=== PATIENT | female | born 1980 | race Caucasian/White ===

== ENCOUNTER 2019-01-26 05:47 | Inpatient (IN) | payer BC ==
[~2019-01-26 05:47] MED LIST: Buffered Lidocaine 1% SYRIN* 1 ML/SYRINGE INTRADERM ONE
[2019-01-26] MEDS ORDERED: Sodium Citrate/Citric Acid* 15 ML UDC PO ONE (06:00)
[2019-01-26] MEDS ORDERED: Lactated Ringers 1000 ML Bag* 1,000 ML IV SCH ×2 (06:00→11:00)
[2019-01-26] MEDS ORDERED: Clindamycin 900 MG/D5W BAG(*) 900 MG/50 ML BAG IVPB ONE (06:30)
[2019-01-26] MEDS ORDERED: NS 0.9% IVPB ONE (07:00)
[2019-01-26] MEDS ORDERED: GENTAMICIN ADULT IVPB ONE (07:00)
[2019-01-26] MEDS ORDERED: Morphine PF AMP (0.5MG/ML)* 5 MG/10 ML AMP ONE (07:33)
[2019-01-26] MEDS ORDERED: Naloxone* 0.4 MG/ML 1 ML VIAL IV PRN ×2 (08:42)
[2019-01-26] MEDS ORDERED: Acetaminophen TAB* 325 MG PO PRN ×2 (08:42)
[2019-01-26] MEDS ORDERED: fentaNYL* 50 MCG/ML 2 ML VIAL (100 MCG VIAL) IV PRN (08:42)
[2019-01-26] MEDS ORDERED: DiMENhydriNATE IV* 50 MG/ML VIAL IV PUSH PRN ×2 (08:42)
[2019-01-26] MEDS ORDERED: HYDROcodone/ACETAMIN 5-325 MG* 1 TAB PO PRN (08:42)
[2019-01-26] MEDS ORDERED: oxyCODONE/Acetamin 5/325 MG* TAB PO PRN (08:42)
[2019-01-26] MEDS ORDERED: Nalbuphine* 10 MG/ML 1 ML VIAL IV PRN (08:42)
[2019-01-26] MEDS ORDERED: HYDROmorphone INJ1* 1 MG/ML SYRINGE IV PRN (08:42)
[2019-01-26] MEDS ORDERED: Ketorolac INJ* 30 MG/ML 1 ML VIAL IV PRN (08:42)
[2019-01-26] MEDS ORDERED: Ondansetron INJ* 2 MG/ML VIAL IV PRN ×2 (08:42)
[2019-01-26] MEDS ORDERED: diPHENhydraMINE IV* 50 MG/ML 1 ml VIAL (BENADRYL) IV PRN ×2 (08:42)
[2019-01-26] MEDS ORDERED: Carboprost Tromethamine* 250 MCG INJ ONE (09:26)
[2019-01-26] MEDS ORDERED: Midazolam* 1 MG/ML 2 ML VIAL (2 MG) ONE (09:40)
[2019-01-26] MEDS ORDERED: OXYTOCIN* 10 UNITS/ML 1 ML VIAL ONE (09:45)
[2019-01-26] MEDS ORDERED: Phenylephrine IV* 40 MCG/ML 10 ML SYRINGE ONE (09:57)
[2019-01-26] MEDS ORDERED: EPHEDrine (Pressors)* 50 MG/ML VIAL ONE (09:57)
[2019-01-26] MEDS ORDERED: Zolpidem TAB* 5 MG PO PRN (10:22)
[2019-01-26] MEDS ORDERED: Dibucaine 1% 28.35 GM TUBE PR PRN (10:22)
[2019-01-26] MEDS ORDERED: Glycerin ADULT SUPP PR PRN (10:22)
[2019-01-26] MEDS ORDERED: Witch Hazel PAD* JAR TOPICAL PRN (10:22)
[2019-01-26] MEDS: Ketorolac INJ* 30 MG/ML 1 ML VIAL IV PRN ×2 (10:48→16:44)
[2019-01-26] MEDS: Oxytocin in LR* 20 UNITS/1,000 ML BAG IVPB SCH ×2 (11:01→17:53)
--- NOTE | 2019-01-26 11:41 | OP ---
OPERATIVE REPORT: DATE OF OPERATION: 01/26/19 DATE OF : 82 SURGEON: Steven Turner MD. TOPOLOGY PROFESSOR: Dr. Duke. ANESTHESIA: Spinal with Duramorph. PRE-OP DIAGNOSES: Previous section, desires permanent sterilization and anemia. POST-OP DIAGNOSES: Previous section, desires permanent sterilization and anemia. OPERATIVE PROCEDURE: Low transverse section, bilateral tubal ligation. ESTIMATED BLOOD LOSS: 800 cc. SPECIMEN: Includes bilateral fallopian tubes. FINDINGS: At the time of she had a viable female, Apgars 8 and 9. Weight was 7 pounds 14 o unces. Both tubes and ovaries appeared normal. DESCRIPTION OF PROCEDURE: The patient was identified and procedure identified as a low transverse ce sarean section, bilateral tubal ligation. The patient was taken to the operating room and prepped an d draped in the usual fashion in the left lateral recumbent position under spinal anesthesia. A Pfan nenstiel incision was made in the abdomen and carried down through fat, fascia, and peritoneum. A tr ansverse incision was made in the low uterine segment, extended laterally using blunt dissection. Me conium was noted. The above was delivered with ease. The cord was doubly clamped and cut and the was handed to the awaiting railroad brakeman. Cord blood was obtained. Placenta delivered spo ntaneously. The uterus was wiped out with a wet lap sponge. The uterine incision was then closed us ing 0 Polysorb in a running fashion. A second layer was used to imbricate the first layer. Good hem ostasis was verified. The right fallopian tube was grasped at the fimbriated end and cross clamped w ith a Tiffanie and ties were placed over the fimbria x2 and tied down and the fimbria was excised on the right. Same procedure was carried out on the left after following the fallopian tube to its fimbria randee ends. A sponge had been placed in the peritoneal gutter, which after sponge count was retrieved. Good hemostasis was verified in the abdominal cavity. Both fallopian tube ligation sites were insp ected, found to be hemostatic. The peritoneum was grasped and closed using 3-0 Polysorb in a running fashion. Hemostasis was verified in subrectus layers. The fascia was then closed using 0 Polysorb i n a running fashion. Hemostasis was achieved in the subcu. Copious irrigation was utilized and suct ioned out. The space was closed using 3 simple 3-0 Polysorb sutures and the skin was closed wit h 4-0 Monocryl in a subcuticular fashion. Steri-Strips and Mastisol was used to reinforce the incisi on. All sponge and instrument counts were correct. The patient returned to recovery room in stable condition. [id number]/[facility] #: [id number]
[2019-01-26] MEDS ORDERED: HYDROcodone/ACETAMIN 5-325 MG* 1 TAB ONE (11:43)
[2019-01-26] MEDS: Simethicone TAB* 80 MG TAB.CHEW PO SCH ×3 (14:52→21:10)
[2019-01-26] MEDS: Docusate CAP* 100 MG PO SCH ×2 (14:58→21:10)
[2019-01-26] MEDS: diPHENhydraMINE PO* 50 MG PO PRN (22:17)
[2019-01-27] MEDS ORDERED: oxyCODONE/Acetamin 5/325 MG* TAB PO PRN ×2 (00:42)
[2019-01-27] MEDS ORDERED: Acetaminophen TAB* 325 MG PO PRN (00:42)
[2019-01-27] MEDS: Ibuprofen TAB* 600 MG PO PRN ×4 (01:27→20:28)
[2019-01-27] MEDS: diPHENhydraMINE PO* 50 MG PO PRN ×2 (03:35→09:46)
[2019-01-27] MEDS ORDERED: Nalbuphine* 10 MG/ML 1 ML VIAL IM PRN (03:37)
[2019-01-27 07:50] LABS: ABS Basophils 0.1 10^3/ul (0-0.2); ABS Eosinophils 0.1 10^3/ul (0-0.6); ABS Lymphocytes 1.2 10^3/ul (1.0-4.8); ABS Neutrophils 10.1 10^3/ul (1.5-7.7); ABS Nucleated RBC 0 10^3/ul; Eosinophil % 0.5 %; Hematocrit 25 % (35-47); Hemoglobin 7.9 g/dl (12.0-16.0); Lymphocyte % 9.4 %; Mean Corpuscular HGB Conc 31 g/dl (31-36); Mean Corpuscular Hemoglobin 25 pg (27-31); Mean Corpuscular Volume 81 fL (80-97); Mean Platelet Volume 8.7 fL (7.4-10.4); Nucleated Red Blood Cells % 0.1; Platelet Count 212 10^3/ul (150-450); Red Blood Count 3.12 10^6/ul (4.00-5.40); Red Cell Distribution Width 16 % (10.5-15); White Blood Count 12.4 10^3/ul (3.5-10.8)
[2019-01-27] MEDS: Docusate CAP* 100 MG PO SCH ×3 (08:02→20:28)
[2019-01-27] MEDS: Simethicone TAB* 80 MG TAB.CHEW PO SCH ×4 (08:02→20:28)
[2019-01-27] MEDS: Ferrous Gluconate TAB* 324 MG TAB PO SCH ×2 (08:06→20:28)
[2019-01-28] MEDS: Ibuprofen TAB* 600 MG PO PRN (06:12)
[2019-01-28] MEDS: Simethicone TAB* 80 MG TAB.CHEW PO SCH (09:03)
[2019-01-28] MEDS: Ferrous Gluconate TAB* 324 MG TAB PO SCH (09:04)
[2019-01-28 10:02] VITALS: BP 123/60
[2019-01-28] MEDS: Docusate CAP* 100 MG PO SCH (10:13)
== END 2019-01-28 15:04 | disposition home or self-care (01) | DRG 540 ==
LOC: MCHOB 05:47
PROVIDERS: ADMIT Obstetrics & Gynecology; ATTEND Obstetrics & Gynecology
PROC: 4A1HXCZ Monitoring of Products of Conception, Cardiac Rate, External Approach (ICD-10-PCS; 2019-01-26)
PROC: 10907ZC Drainage of Amniotic Fluid, Therapeutic from Products of Conception, Via Natural or Artificial Opening (ICD-10-PCS; 2019-01-26)
PROC: 0UB70ZZ Excision of Bilateral Fallopian Tubes, Open Approach (ICD-10-PCS; 2019-01-26)
PROC: 10D00Z1 Extraction of Products of Conception, Low, Open Approach (ICD-10-PCS; principal; 2019-01-26 07:45)
DX: O34.211 Maternal care for low transverse scar from previous cesarean delivery (principal); O99.02 Anemia complicating childbirth; Z37.0 Single live birth; Z3A.39 39 weeks gestation of pregnancy; Z88.0 Allergy status to penicillin; Z30.2 Encounter for sterilization; O90.81 Anemia of the puerperium
CPT/HCPCS: 36415; 85025; 88302; A9270-GY; J1580; J1885; J2250; J2590